=== PATIENT | female | born 2000 | race Caucasian/White ===

== ENCOUNTER 2022-07-19 16:05 | Emergency (ER) | payer BC, SELFPAY ==
[2022-07-19 16:45] VITALS: BP 141/71; PULSE 108; RESP 16; TEMP 36.8; O2SAT 99; BMI 25.8
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
== END 2022-07-19 18:21 | disposition left against medical advice (07) ==
PROVIDERS: Emergency Provider Emergency Medicine; PCP Physician Assistant
DX: S09.90XA Unspecified injury of head, initial encounter (principal)
CPT/HCPCS: 70450; 99281